=== PATIENT | female | born 1980 | race Caucasian/White ===

== ENCOUNTER → 2017-07-11 | Outpatient (CLI) | payer BC | END | disposition home or self-care (01) | LOC: C.LABSPEC 17:54 | PROVIDERS: ATTEND Obstetrics & Gynecology | DX: B37.3 Candidiasis of vulva and vagina (principal) ==

== ENCOUNTER → 2017-10-03 | Outpatient (CLI) | payer BC ==
[2017-10-03 17:19] LABS: HEMATOCRIT 33.1 % (37-47)
[2017-10-03 17:57] LABS: URINE APPEARANCE CLEAR (CLEAR); URINE BILIRUBIN NEG (NEG); URINE COLOR YELLOW; URINE EPITHELIAL CELL AUTO 20-30 /lpf (0-5); URINE NITRITE NEG (NEG); URINE SPECIFIC GRAVITY 1.019 (1.000-1.030); UROBILINOGEN NEG (NEG)
[2017-10-03 17:59] LABS: MANUAL MICROSCOPIC REQUIRED? NO; REVIEW REQ? NO
[2017-10-03 18:03] LABS: GTGD 50 Grams
== END | disposition home or self-care (01) ==
LOC: C.LAB1850 16:18
PROVIDERS: ATTEND Obstetrics & Gynecology
DX: Z34.82 Encounter for supervision of other normal pregnancy, second trimester (principal); Z3A.00 Weeks of gestation of pregnancy not specified

== ENCOUNTER → 2017-10-31 | Outpatient (CLI) | payer BC | END | disposition home or self-care (01) | LOC: C.LAB1850 07:07 | PROVIDERS: ATTEND Obstetrics & Gynecology | DX: O28.1 Abnormal biochemical finding on antenatal screening of mother (principal) ==

== ENCOUNTER → 2017-11-30 | Outpatient (CLI) | payer BC | END | disposition home or self-care (01) | LOC: C.LABSPEC 17:42 | PROVIDERS: ATTEND Obstetrics & Gynecology | DX: O09.523 Supervision of elderly multigravida, third trimester (principal) ==

== ENCOUNTER 2017-12-27 06:24 | Inpatient (IN) | payer BC ==
[~2017-12-27] VITALS: Ht 165.1 cm; Wt 80.5 kg
[2018-01-02] MEDS ORDERED: FOLI1TAB8 PO (18:56)
[2018-01-02] MEDS ORDERED: FERR324T PO (18:56)
[2018-01-02] MEDS ORDERED: PRENCAP38 PO (18:56)
[2018-01-03] MEDS ORDERED: LACTATED RINGER'S 1000ML 1,000 ML IV PRN (09:12)
[2018-01-03] MEDS ORDERED: LACTATED RINGER'S 1000ML 500 ML IV PRN ×3 (09:12→21:09)
[2018-01-03] MEDS ORDERED: OXYTOCIN 30 UNITS/500ML NSS IV PRN ×2 (09:15→21:15)
[2018-01-03 09:40] LABS: HEMATOCRIT 36.4 % (37-47); HEMOGLOBIN 12.6 g/dL (12.0-16.0); MEAN CELL VOLUME 91.7 fL (80-100); MEAN CORPUSCULAR HEMOGLOBIN 31.7 pg (25-34); MEAN CORPUSCULAR HGB CONC 34.6 g/dl (32-36); MEAN PLATELET VOLUME 11.8 fL (7.4-10.4); PLATELET COUNT 209 K/uL (130-400); RED CELL DISTRIBUTION WIDTH CV 14.5 % (11.5-14.5); RED CELL DISTRIBUTION WIDTH SD 49.2 fL (36.4-46.3); WHITE BLOOD COUNT 17.28 K/uL (4.8-10.8)
[2018-01-03] MEDS: LACTATED RINGER'S 1000ML 1,000 ML IV SCH ×3 (09:46→18:52)
[2018-01-03 11:09] VITALS: Ht 165.1 cm; Wt 80.5 kg
[2018-01-03] MEDS ORDERED: FENTANYL CITRATE INJ 50 MCG/1 ML 2 ML VIAL ONE (18:10)
[2018-01-03] MEDS ORDERED: BUPIVACAINE 0.25% 30 ML VIAL ONE (18:10)
[2018-01-03] MEDS ORDERED: EpHEDrine SULFATE INJ 50 MG/ML AMP ONE (18:10)
[2018-01-03] MEDS ORDERED: FENTANYL 2MCG/ML ROPIV 1.25MG/ML 100ML BAG EPI ONE (18:11)
[2018-01-03] MEDS ORDERED: NALOXONE HCL INJ 1 MG in SODIUM CHLORIDE 0.9% 1000ML 1,000 ML IV PRN ×4 (19:07)
[2018-01-03] MEDS ORDERED: ONDANSETRON INJ 2 MG/ML 2 ML VIAL IV PRN (19:15)
[2018-01-03] MEDS ORDERED: DiphenhydrAMINE HCL 50 MG/ML VIAL IV PRN (19:15)
[2018-01-03] MEDS ORDERED: NALBUPHINE HCL INJ 10 MG/ML AMP IV PRN (19:15)
[2018-01-03] MEDS ORDERED: NALOXONE HCL INJ 0.4 MG/1 ML VIAL/CARP IV PRN (19:15)
[2018-01-03] MEDS ORDERED: PROMETHAZINE HCL INJ 25 MG in SODIUM CHLORIDE 0.9% 50ML 50 ML IV PRN (19:15)
[2018-01-03] MEDS ORDERED: FENTANYL 2MCG/ML ROPIV 1.25MG/ML 100ML BAG EPI PRN (19:15)
[2018-01-03] MEDS ORDERED: EpHEDrine SULFATE INJ 50 MG/ML AMP IV PRN (19:15)
[2018-01-04] MEDS ORDERED: NICOTINE 21 MG/24 HR TDSY TD STA (00:58)
[2018-01-04] MEDS: LACTATED RINGER'S 1000ML 1,000 ML IV SCH (01:25)
[2018-01-04] MEDS ORDERED: LANOLIN OINT EXT PRN (03:15)
[2018-01-04] MEDS ORDERED: OXYCODONE/ACETAMINOPHEN 5-325 TAB PO PRN (03:15)
[2018-01-04] MEDS ORDERED: SUPERCREAM 0.870 % 15GM JAR EXT PRN (03:15)
[2018-01-04] MEDS ORDERED: OXYTOCIN 30 UNITS/500ML NSS IV PRN (03:15)
[2018-01-04] MEDS ORDERED: BENZOCAINE 20% AER SPR 82.5 GM CAN EXT PRN (03:15)
[2018-01-04] MEDS ORDERED: ACETAMINOPHEN 325 MG TAB PO PRN (03:15)
[2018-01-04] MEDS ORDERED: NURSING VERBAL MED ORDER ONE ×2 (04:30→14:15)
[2018-01-04] MEDS ORDERED: DiphenhydrAMINE HCL 50 MG/ML VIAL IV STA (04:32)
[2018-01-04 05:20] VITALS: BP 98/55; PULSE 85; TEMP 36.9
--- NOTE | 2018-01-04 06:34 | Discharge Instructions ---
Discharge Instructions Date of Service Jan 04, 2018. Admission Reason for Admission: Induction Discharge Discharge Diagnosis / Problem: Vaginal Delivery Discharge Goals Goal(s): Routine recovery after delivery Medications Continue Dispensed Medications: supercream, dermaplast, tucks, lansinoh Activity Recommendations Activity Limitations: per Instructions/Follow-up section . Instructions / Follow-Up Instructions / Follow-Up ACTIVITY RECOMMENDATIONS: * Gradual return to full activity over the next 2-3 weeks. * No lifting - nothing heavier than baby over the next 2-3 weeks. * Do not engage in vigorous exercise, sexual activity or sports until cleared by your physician. * Do not drive or operate any motorized equipment until cleared by your physician. * You may shower/bathe daily. MEDICATIONS: For discomfort or pain, you may use Acetaminophen (Tylenol), Ibuprofen (Advil), or Naproxen (Aleve) following the package directions. For constipation you may use Colace following the package directions. BREAST CARE: If you are not breast feeding: * Wear a supportive bra 24 hours a day for one to two weeks. * Avoid stimulating your breasts and nipples as much as possible during the first few weeks after delivery. * When taking a shower, have the warm water hit your back, not breasts. * When your breasts feel full, apply ice packs. Usually three to four times a day helps ease the discomfort. * Take a mild pain medication (Tylenol / Motrin) when you are uncomfortable. If breast feeding: * Use breast milk to lubricate nipples. Lansinoh cream may be used for sore nipples. You do not need to remove cream prior to breast feeding. If using a different brand of cream, check the label for directions regarding removal of cream prior to nursing. * Wear a supportive bra. * If having problems with breasts or breast feeding, call a senior clinical consultant or your health care provider. EPISIOTOMY CARE: After delivery, if you have an episiotomy (stitches), the following steps will ease discomfort and aid healing. * For the first 24 hours after delivery, place ice packs next to your episiotomy to help reduce swelling. * After the first 24 hour-period, sitz baths, either portable or in the tub, are suggested. A shower with a shower arm sprayed over the episiotomy may be comforting. * Kriss care should be done after each voiding and bowel movement. Squirt warm water from a plastic bottle over the perineum (region of the body between the anus and urinary opening) and pat dry. * Use Dermoplast to ease discomfort. Shake container. [place] directly over the episiotomy. Place a Tucks on a clean sanitary pad next to your episiotomy. SPECIAL CARE INSTRUCTIONS: When you are discharged from the hospital, it is important for you to follow the instructions listed below: * During the first week at home, you should be able to care for yourself and your baby. In addition, the usual light household activities are encouraged. * Limit your activities to the way you feel. Do not try to clean the house or move furniture. Be sensible. * If you actively engage in sports and have done so up until the time of your delivery, you may resume these activities as soon as you feel able. This may take up to one month or even longer. Use good judgment. * Continue to take your vitamins for at least six weeks after the of your baby. * Your diet need not be limited unless you were on a special diet before your delivery. Breast-feeding mothers need around 2500 calories per day and at least 64-80 ounces of fluid per day (8 to 10 glasses). * You should eat foods from the four major food groups. Crash diets or fad diets are to be avoided. Eating lean meats, fresh fruits and vegetables, low-fat dairy products, high fiber foods and a regular exercise program, will help you get back to your pre- weight without putting your health at risk. * Constipation is sometimes a problem after delivery. Take a mild laxative as needed. If breast feeding, Milk of Magnesia is acceptable to use. You may use a suppository or Fleets enema if no episiotomy. * A daily shower or tub bath is suggested. Be sure to thoroughly and gently dry the perineum. * A bloody vaginal discharge will usually continue until around four weeks post . A small amount of bleeding may continue for as long as six weeks. Vaginal discharge changes from the bright red bleeding after delivery to pink then brownish and finally yellowish-pink before becoming white and disappearing. * Bleeding may increase with activity. Your first period may come in 4-8 weeks. If you are breast feeding, your period may be delayed even longer. * Elsie (sex) can begin whenever both you and your partner feel comfortable and do not have any form of genital infection. It is recommended that you wait at least six weeks for internal and external healing to occur. If you have questions, please talk to your health care practitioner. A condom should be used to prevent infection and . * Foreplay, gentle intercourse and lubrication is very important the first several times to prevent pain. A water-based lubricant such as K-Y jelly or Astroglide may be used. * If you have RH negative blood and your baby is RH positive, you will receive RHOGAM by injection prior to discharge. The nurse will give you a card to keep with you that has the date and place that you received RHOGAM after delivery. * During your care, you had a Rubella screen done to check for the presence of rubella antibodies in your blood. If your test was negative, you will receive a Rubella vaccine prior to discharge. This vaccine may cause a fever, soreness at the injection site and flu-like symptoms. If these symptoms persist, notify your health care practitioner. is not advised for one month after a Rubella vaccine. * Verbalizes understanding of car seat law as reviewed with patient nursing. * Car Seat hand-out given and reviewed with patient by nursing. * Shaken baby information reviewed with patient by nursing. Call you doctor if: * Heavy bleeding (saturating several pads an hour) or passing clots the size of your fist. * A fever >101 degrees F (38.3 degrees C) on two occasions four hours apart and /or chills. * Unusual pain in the pelvic or vaginal areas. * "Baby Blues" lasting longer than two weeks. If you have any questions or concerns, call your health care practitioner at . FOLLOW UP VISIT: * Please call the office at to schedule a 6 week examination. It is important you keep this appointment. It is important for you to make arrangements for either yearly or twice yearly check-ups thereafter. Current Hospital Diet Patient's current hospital diet: Regular OB Diet Discharge Diet Recommended Diet: Regular Diet Pending Studies Studies pending at discharge: no Medical Emergencies . Who to Call and When: Medical Emergencies: If at any time you feel your situation is an emergency, please call 911 immediately. . Non-Emergent Contact Non-Emergency issues call your: Primary Care Provider . . "Provider Documentation" section prepared by Paul Tidwell. . VTE Core Measure Inpt VTE Proph given/why not?: Treatment not indicated
--- NOTE | 2018-01-04 06:47 | DELIVERY SUMMARY ---
DATE OF OPERATION: 01/04/2018 The patient is a 37-year-old white female, 7, para 5-0-1-5, EDC of 12/27/2017 who presents for induction of labor because of post term . She received a cervical balloon in the night of 01/02/2018 and represented in the morning of 01/03/2018 for continued induction of labor. Pitocin was began. Membranes were ruptured at approximately noon. An IUPC was placed at approximately 4 o'clock to confirm adequate contractions and they were not. Pitocin augmentation was continued. She progressed slowly to full dilatation and delivered a viable female infant over intact perineum. Mouth and nasopharynx were suctioned in the field. The rest of the infant delivered easily, was placed on the mother's abdomen for further evaluation and stimulation. Cord was clamped and cut. The was placed on the baby bed for further stimulation. There was particular meconium noted earlier in the labor, but none was noted at delivery. There was a very superficial vaginal tear and a very superficial labial abrasion that were not bleeding and that repaired. Estimated blood loss was 250 mL. Mother and infant were doing well after delivery. I attest to the content of the Intraoperative Record and any orders documented therein. Any exceptions are noted below. MTDD
[2018-01-04 07:20] VITALS: BP 97/60; PULSE 81; TEMP 36.6; O2SAT 97
[2018-01-04] MEDS: PRENATAL VITAMIN TAB PO SCH (07:30)
[2018-01-04] MEDS: DOCUSATE SODIUM 100 MG CAP PO SCH ×2 (07:30→20:42)
--- NOTE | 2018-01-04 08:00 | Anesthesia Procedure Note ---
Anesthesia Epidural Removal Nt Date & Time Jan 04, 2018 at 07:59 Vital Signs Pain Intensity: 0.0 Vital Signs Past 12 Hours Date Time Temp Pulse Resp B/P (MAP) Pulse Ox O2 Delivery O2 Flow Rate FiO2 01/04/18 05:20 36.9 85 20 98/55 (69) Room Air 01/04/18 05:20 Room Air Notes Mental Status: alert / awake / arousable, participated in evaluation Nausea / Vomiting: adequately controlled Pain: adequately controlled Airway Patency, RR, SpO2: stable & adequate BP & HR: stable & adequate Hydration State: stable & adequate Neuraxial Anesthesia: was administered Anesthetic Complications: no major complications apparent, pt satisfied with anesthetic care Epidural: removed without complications, with tip intact
[2018-01-04 12:00] VITALS: BP 113/72; PULSE 80; TEMP 36.6
[2018-01-04] MEDS: IBUPROFEN 600 MG TAB PO PRN ×2 (12:04→19:20)
[2018-01-04 16:00] VITALS: BP 131/75; PULSE 86; TEMP 36.7
[2018-01-04 20:30] VITALS: BP 118/75; PULSE 76; TEMP 36.4; O2SAT 99
[2018-01-04 23:40] VITALS: BP 109/67; PULSE 78; TEMP 36.3; O2SAT 99
[2018-01-05] MEDS: IBUPROFEN 600 MG TAB PO PRN (05:26)
--- NOTE | 2018-01-05 06:30 | Progress Note ---
Subjective Jan 05, 2018. Subjective conversation w/ patient (Patient seen and examined at bedside) Ambulation: ambulating normally Voiding: no voiding problems Diet Tolerance: Regular Diet Lochia: Moderate Feeding Type: Breast Feeding Pain: 2/10 cramping pain, improved with analgesia Review of Systems Constitutional: No fever, No chills Respiratory: + cough (dry cough), No sputum, No wheezing, No shortness of breath, No dyspnea on exertion, No dyspnea at rest Cardiac: + chest pain (chest pain a/w coughing and taking a deep breath in) Abdomen: No nausea, No vomiting Female : No dysuria Objective Vital Signs Date Time Temp Pulse Resp B/P (MAP) Pulse Ox O2 Delivery O2 Flow Rate FiO2 01/04/18 23:40 36.3 78 18 109/67 (81) 99 Room Air 01/04/18 23:40 99 Room Air 01/04/18 20:30 36.4 76 20 118/75 (89) 99 Room Air 01/04/18 16:00 Room Air 01/04/18 16:00 36.7 86 16 131/75 (93) Room Air 01/04/18 12:00 36.6 80 16 113/72 (86) Room Air 01/04/18 07:20 Room Air 01/04/18 07:20 36.6 81 20 97/60 (72) 97 Room Air Physical Exam General Appearance: WELL-APPEARING, WD/WN, NO APPARENT DISTRESS Respiratory/Chest: chest non-tender, lungs clear, normal breath sounds Cardiovascular: regular rate, rhythm Abdomen: soft Fundus: Firm, Non-Tender, Relation to Umbilicus (1 below) Extremities: no calf tenderness Laboratory Results Last 24 Hours Test 01/05/18 04:44 Medications Current Inpatient Medications Medications (Trade) Dose Ordered Sig/Brittany Route Start Time Stop Time Status Last Admin Dose Admin Oxytocin (Pitocin IV) 30 units UD PRN IV 01/04/18 03:15 02/03/18 03:14 Benzocaine (Dermoplast Aero Spr) 1 appln PRN PRN EXT 01/04/18 03:15 02/03/18 03:14 01/04/18 20:56 1 APPLN Cocaine HCl (Supercream 0.870% Cr) BID PRN EXT 01/04/18 03:15 01/18/18 03:14 Lanolin (Lanolin Oint) PRN PRN EXT 01/04/18 03:15 02/03/18 03:14 01/04/18 20:59 1 TUBE Prenat Multivit/ [place]/Iron/Folic Ac ( Vitamin Tab) 1 tab DAILY PO 01/04/18 08:00 02/03/18 07:59 01/04/18 07:30 1 TAB Ibuprofen (Motrin Tab) 600 mg Q4H PRN PO 01/04/18 03:15 02/03/18 03:14 01/05/18 05:26 600 MG Acetaminophen (Tylenol Tab) 650 mg Q6H PRN PO 01/04/18 03:15 02/03/18 03:14 01/04/18 20:43 650 MG Oxycodone/ Acetaminophen (Percocet 5-325mg Tab) 1 tab Q4H PRN PO 01/04/18 03:15 01/18/18 03:14 Bisacodyl (Dulcolax Tab) 5 mg 20 PO 01/05/18 20:00 01/05/18 20:01 Docusate Sodium (coLACE CAP) 100 mg BID PO 01/04/18 08:00 02/03/18 07:59 01/04/18 20:42 100 MG Nicotine (Nicoderm Cq 21MG Patch) 1 patch QAM EXT 01/05/18 08:00 02/04/18 07:59 Miscellaneous (Remove Nicoderm Patch) 1 ea QAM N/A 01/05/18 08:00 02/04/18 07:59 Assessment and Plan Post- Day#: 1 Continue Routine Care: 37 year old s/p vaginal delivery w/induction for post-dates day 1 - B+, Rubella Immune, GBS -ve - pt doing well clinically - Vital Signs reviewed and WNL - Encourage Ambulation, monitor and control pain with Motrin PRN - Encourage Breast Feeding - cough & chest pain likely viral in etiology - Pt ready for d/c today and counselled on discharge instructions Resident Physician Supervision Note: I was present with Dr. Tidwell during the history and exam. I discussed the case with the resident and agree with the findings and plan as documented in the note. Any exceptions or clarifications are listed here: PPD#2 doing well. Discharge instructions reviewed. RTO 6w PP. Documented By: Cuca White Resident Tracking Resident Involvement: Resident Care Provided Care Provided: OB Delivery
[2018-01-05 07:01] LABS: HEMATOCRIT 31.1 % (37-47); HEMOGLOBIN 10.7 g/dL (12.0-16.0)
[2018-01-05] MEDS ORDERED: NICOTINE 21 MG/24 HR TDSY EXT SCH (08:00)
[2018-01-05] MEDS: PRENATAL VITAMIN TAB PO SCH (08:17)
[2018-01-05] MEDS: DOCUSATE SODIUM 100 MG CAP PO SCH (08:17)
[2018-01-05 08:20] VITALS: BP 124/77; PULSE 81; TEMP 36.3; O2SAT 99
[2018-01-05 10:15] VITALS: BP_DIAS 77; PULSE 81; TEMP 36.3
[2018-01-05] MEDS ORDERED: BISACODYL 5 MG TABEC PO SCH (20:00)
== END 2018-01-05 10:45 | disposition home or self-care (01) | DRG 775 ==
LOC: C.LD 01-03 08:30 → EEVIPCON 01-03 08:30 → C.OBG 01-04 05:27
PROVIDERS: ADMIT Obstetrics & Gynecology; ATTEND Obstetrics & Gynecology
PROC: 10907ZC Drainage of Amniotic Fluid, Therapeutic from Products of Conception, Via Natural or Artificial Opening (ICD-10-PCS; principal; 2018-01-04)
PROC: 10H07YZ Insertion of Other Device into Products of Conception, Via Natural or Artificial Opening (ICD-10-PCS; principal; 2018-01-04)
PROC: 3E033VJ Introduction of Other Hormone into Peripheral Vein, Percutaneous Approach (ICD-10-PCS; principal; 2018-01-04)
PROC: 0U7C7ZZ Dilation of Cervix, Via Natural or Artificial Opening (ICD-10-PCS; principal; 2018-01-04)
PROC: 10E0XZZ Delivery of Products of Conception, External Approach (ICD-10-PCS; principal; 2018-01-04)
DX: O48.0 Post-term pregnancy (principal); O77.0 Labor and delivery complicated by meconium in amniotic fluid; O99.89 Other specified diseases and conditions complicating pregnancy, childbirth and the puerperium; N87.0 Mild cervical dysplasia; O99.330 Smoking (tobacco) complicating pregnancy, unspecified trimester; F17.210 Nicotine dependence, cigarettes, uncomplicated; Z37.0 Single live birth; Z3A.41 41 weeks gestation of pregnancy

== ENCOUNTER 2018-01-02 18:10 | Outpatient (CLI) | payer BC ==
[~2018-01-02] VITALS: Ht 165.1 cm; Wt 80.0 kg
[2018-01-02] MEDS ORDERED: FOLI1TAB8 PO (18:56)
[2018-01-02] MEDS ORDERED: FERR324T PO (18:56)
[2018-01-02] MEDS ORDERED: PRENCAP38 PO (18:56)
[2018-01-02 19:15] VITALS: Ht 165.1 cm; Wt 80.0 kg
== END 2018-01-02 19:46 | disposition home or self-care (01) ==
LOC: C.OPB 18:10 → C.LD 18:10 → C.OPB 19:46
PROVIDERS: ATTEND Obstetrics & Gynecology
DX: O48.0 Post-term pregnancy (principal); Z3A.00 Weeks of gestation of pregnancy not specified

== ENCOUNTER → 2018-02-16 | Outpatient (CLI) | payer BC ==
[~2018-02-16] MED LIST: FERR324T PO; FOLI1TAB8 PO; PRENCAP38 PO
== END | disposition home or self-care (01) ==
LOC: C.PAPS 10:05
PROVIDERS: ATTEND Obstetrics & Gynecology
DX: R87.610 Atypical squamous cells of undetermined significance on cytologic smear of cervix (ASC-US) (principal)